=== PATIENT | male | born 1985 | race African-American/Black ===

== ENCOUNTER 2017-02-23 23:52 | Emergency (ER) | payer SELFPAY ==
[~2017-02-23] VITALS: Ht 172.7 cm; Wt 81.6 kg
[~2017-02-23 23:52] MED LIST: ANAPROX DS550 MG PO; CLINDAMYCIN HC300 MG PO; IBU-8800 MG PO; KEFLEX500 MG PO; KENALOG 0.1%80 GM T; MOTRIN800 MG PO; Orphenadrine C100 MG PO; ULTRAM50 MG PO
[2017-02-24 00:32] LABS: BASO # 0.1 10*3/uL (0.0-0.1); BASO % 0.4 % (0.0-1.0); EOS # 0.3 10*3/uL (0.0-0.4); EOS % 1.9 % (1.0-4.0); HEMATOCRIT 45.1 % (42.0-52.0); HEMOGLOBIN 14.5 g/dl (14.0-18.0); LYMPH # 2.2 10*3/uL (1.3-4.4); LYMPH % 16.7 % (27.0-41.0); MEAN CORPUSCULAR HGB CONC 32.2 g/dl (33.0-37.0); MEAN PLATELET VOLUME 10.7 fl (9.6-12.3); MONO # 1.1 10*3/uL (0.1-1.0); MONO % 8.6 % (3.0-9.0); NEUT # 9.3 10*3/uL (2.3-7.9); PLATELET COUNT AUTOMATED 279 10*3/uL (130-400); RED BLOOD COUNT 5.37 10*6/uL (4.50-5.90); RED CELL DISTRI WIDTH 15.3 % (0-14.5); WHITE BLOOD COUNT 12.9 10*3/uL (4.8-10.8)
[2017-02-24 00:48] LABS: ALBUMIN 3.6 gm/dl (3.1-4.5); ALKALINE PHOSPHATASE 63 U/L (45-117); BUN 6 mg/dl (7-24); CHLORIDE 103 mmol/L (98-107); CREATININE 1.13 mg/dL (0.70-1.30); POTASSIUM 3.8 mmol/L (3.5-5.1); SGOT/AST 26 IU/L (3-35); SGPT/ALT 33 U/L (12-78); SODIUM 138 mmol/L (136-145); TOTAL PROTEIN 7.2 gm/dL (6.4-8.2)
[2017-02-24] MEDS ORDERED: SEPTDS PO (01:18)
[2017-02-24] MEDS ORDERED: NAPROSYN500 MG PO (01:20)
== END 2017-02-24 02:02 | disposition home or self-care (01) ==
LOC: ED 23:52
PROVIDERS: Student in an Organized Health Care Education/Training Program
DX: L03.211 Cellulitis of face (principal); F17.200 Nicotine dependence, unspecified, uncomplicated; Z91.02 Food additives allergy status; Z91.011 Allergy to milk products

== ENCOUNTER 2018-01-01 21:22 | Emergency (ER) | payer SELFPAY ==
[~2018-01-01] VITALS: Ht 172.7 cm; Wt 79.4 kg
[~2018-01-01 21:22] MED LIST changes: +NAPROSYN500 MG PO; +SEPTDS PO
[2018-01-01 22:13] LABS: BILIRUBIN NEGATIVE (NEGATIVE); BLOOD 1+ (NEGATIVE); CLARITY SL CLOUDY (CLEAR); COLOR YELLOW (YELLOW); GLUCOSE NEGATIVE (NEGATIVE); KETONE NEGATIVE (NEGATIVE); LEUKO ESTERASE NEGATIVE (NEGATIVE); NITRITE NEGATIVE (NEGATIVE); PH 5.5 (5.0-9.0); SPECIFIC GRAVITY >= 1.030 (1.005-1.030); UROBILINOGEN 0.2 E.U./dl (0.2-1.0)
[2018-01-01 22:19] LABS: BACTERIA 2+; EPITHELIAL CELLS 0-2; MUCOUS TRACE; RBC 0-2 rbc/hpf (0-2)
[2018-01-02] MEDS ORDERED: ROBAXIN500 M1 PO (11:51)
[2018-01-02] MEDS ORDERED: IBUPROFEN600 MG PO (11:51)
== END 2018-01-01 22:33 | disposition home or self-care (01) ==
LOC: ED 21:22
PROVIDERS: Physician Assistant
DX: M54.2 Cervicalgia (principal); M25.512 Pain in left shoulder; M25.522 Pain in left elbow; F17.200 Nicotine dependence, unspecified, uncomplicated; Z91.018 Allergy to other foods; Z91.011 Allergy to milk products; Z91.048 Other nonmedicinal substance allergy status

== ENCOUNTER 2018-01-12 16:47 | Emergency (ER) | payer SELFPAY ==
[~2018-01-12] VITALS: Wt 77.1 kg
[~2018-01-12 16:47] MED LIST changes: +IBUPROFEN600 MG PO; +ROBAXIN500 M1 PO
[2018-01-12] MEDS ORDERED: CYCLOBENZAPRINE10 MG PO (17:26)
[2018-01-12] MEDS ORDERED: NAPROSYN500 MG PO (17:26)
== END 2018-01-12 17:32 | disposition home or self-care (01) ==
LOC: ED 16:47
DX: M25.512 Pain in left shoulder (principal); Z91.011 Allergy to milk products; Z91.018 Allergy to other foods; Z88.8 Allergy status to other drugs, medicaments and biological substances

== ENCOUNTER 2018-06-07 01:31 | Emergency (ER) | payer SELFPAY ==
[~2018-06-07 01:31] MED LIST changes: +CYCLOBENZAPRINE10 MG PO
[2018-06-07] MEDS ORDERED: Motrin,Rufen800 MG PO (02:03)
[2018-06-07] MEDS ORDERED: CLINDAMYCIN150 MG PO (02:03)
== END 2018-06-07 02:21 | disposition home or self-care (01) ==
LOC: ED 01:31
DX: S02.5XXA Fracture of tooth (traumatic), initial encounter for closed fracture (principal); K02.9 Dental caries, unspecified; F17.200 Nicotine dependence, unspecified, uncomplicated; Z91.018 Allergy to other foods; Z91.011 Allergy to milk products; X58.XXXA Exposure to other specified factors, initial encounter; Y93.89 Activity, other specified; Y92.89 Other specified places as the place of occurrence of the external cause; Y99.8 Other external cause status

== ENCOUNTER 2018-08-17 13:01 | Emergency (ER) | payer SELFPAY ==
[~2018-08-17] VITALS: Ht 172.7 cm; Wt 79.4 kg
[~2018-08-17 13:01] MED LIST changes: +CLINDAMYCIN150 MG PO; +Motrin,Rufen800 MG PO
[2018-08-17] MEDS ORDERED: NYST SUSP PO (13:44)
== END 2018-08-17 13:57 | disposition home or self-care (01) ==
LOC: ED 13:01
DX: B37.0 Candidal stomatitis (principal); Z91.011 Allergy to milk products; Z91.018 Allergy to other foods

== ENCOUNTER 2018-11-05 22:55 | Emergency (ER) | payer SELFPAY ==
[~2018-11-05] VITALS: Ht 172.7 cm; Wt 83.0 kg
[~2018-11-05 22:55] MED LIST changes: +NYST SUSP PO
[2018-11-05 23:45] LABS: BASO # 0.1 10*3/uL (0.0-0.1); BASO % 0.5 % (0.0-1.0); EOS # 0.4 10*3/uL (0.0-0.4); EOS % 2.9 % (1.0-4.0); HEMATOCRIT 45.2 % (42.0-52.0); HEMOGLOBIN 14.2 g/dl (14.0-18.0); LYMPH # 3.3 10*3/uL (1.3-4.4); LYMPH % 27.5 % (27.0-41.0); MEAN CELL VOLUME 86.9 fl (80.0-94.0); MEAN CORPUSCULAR HGB 27.3 pg (27.0-31.0); MEAN CORPUSCULAR HGB CONC 31.4 g/dl (33.0-37.0); MEAN PLATELET VOLUME 10.7 fl (9.6-12.3); MONO # 1.1 10*3/uL (0.1-1.0); MONO % 9.2 % (3.0-9.0); NEUT # 7.1 10*3/uL (2.3-7.9); NEUT % 59.6 % (47.0-73.0); PLATELET COUNT AUTOMATED 280 10*3/uL (130-400); RED CELL DISTRI WIDTH 15.9 % (0-14.5); WHITE BLOOD COUNT 11.9 10*3/uL (4.8-10.8)
[2018-11-06] LABS: ALBUMIN 3.6 gm/dl (3.1-4.5); ALKALINE PHOSPHATASE 57 U/L (45-117); BUN 11 mg/dl (7-24); CHLORIDE 106 mmol/L (98-107); CREATININE 1.09 mg/dL (0.70-1.30); SGOT/AST 23 IU/L (3-35); SGPT/ALT 33 U/L (12-78); SODIUM 140 mmol/L (136-145); TOTAL PROTEIN 7.2 gm/dL (6.4-8.2)
[2018-11-06] MEDS ORDERED: CEPHALEXIN500 M1 PO (00:04)
[2018-11-06] MEDS ORDERED: SEPTDS PO (00:04)
== END 2018-11-06 00:30 | disposition home or self-care (01) ==
LOC: ED 22:55
PROVIDERS: Nurse Practitioner Family
DX: L02.411 Cutaneous abscess of right axilla (principal); Z91.018 Allergy to other foods; Z91.011 Allergy to milk products